=== PATIENT | male | born 1995 | race Caucasian/White ===

== ENCOUNTER 2019-05-09 21:41 | Inpatient (IN) | payer OTHER ==
[~2019-05-09] VITALS: Ht 188 cm; Wt 116.7 kg
[2019-05-09 23:00] VITALS: BP 115/72
[2019-05-09] MEDS ORDERED: LEVO200T5 PO (23:22)
[2019-05-10] MEDS ORDERED: CARI1.5C PO (00:22)
[2019-05-10] MEDS ORDERED: SERT100T PO (00:22)
[2019-05-10] MEDS: IV NORMAL SALINE 1000ML BAG 1,000 ML IV SCH ×3 (00:38→20:35)
[2019-05-10 03:00] VITALS: BP 115/70
[2019-05-10 07:00] VITALS: BP 113/74
--- NOTE | 2019-05-10 08:01 | PDOC2 ---
ALONZO WEBB RN MOBILE 05/10/19 0800: CONSULT Date of Consult Date of Consult DATE: 05/10/19 TIME: 07:56 Reason for Consult Reason for Consult: possible appendicitis Referring Physician Referring Physician: ER Identification/Chief Complaint Chief Complaint abdominal pain Source Source: Chart review, Patient History of Present Illness Reason for Visit: RLQ pain since monday, radiates to ruQ. Aggravated by movement. Associated nausea. Constipation, laxative taken--minimal stool, did not help pain. Pain remaining about the same Past Medical History Pulmonary: Bronchitis, Other (sleep apnea ) GI: GERD Psych: Bipolar, Other (ADHD) Endocrine: Hypothyroidism Past Surgical History Past Surgical History: No pertinent history Family History Family History: Other (noncontributory to current illness ) Social History Quit ALCOHOL: social Drugs: None (currently, previous hx) Current Medications Current Medications Current Medications Sodium Chloride 1,000 ml @ 100 mls/hr Q10H IV Last administered on 05/10/19at 00:38; Start 05/09/19 at 23:30 Influenza Virus Vaccine Quadrival (Afluria Quad 2019-20 (3yr Up) Syringe) 0.5 ml ONCE ONCE VAX IM ; Start 05/10/19 at 09:00; Stop 05/10/19 at 09:01 Active Scripts Active Reported Vraylar (Cariprazine Hydrochloride) 1.5 Mg Capsule 1 Cap PO DAILY 30 Days Zoloft (Sertraline Hcl) 100 Mg Tablet 100 Mg PO DAILY Levothyroxine Sodium 200 Mcg Tablet 200 Mcg PO DAILY06 Allergies Allergies: Coded Allergies: No Known Drug Allergies (Unverified , 05/10/19) ROS General: No: Chills, Other (fevers ) PSYCHOLOGICAL ROS: No: Anxiety, Depression Eyes: No Blurry vision, No Double vision HEENT: No: Heacaches, Sore Throat Hematological and Lymphatic: No: Bleeding Problems, Blood Clots Respiratory: No: Cough, SOB with excertion Cardiovascular: No Chest Pain, No Palpitations Gastrointestinal: Yes Other (see hpi) Genitourinary: No Dysuria, No Hematuria Musculoskeletal: No Joint Pain, No Muscle Pain Neurological: No Impaired Coord/balance, No Numbness/Tingling Skin: No Pruritus, No Rash Physical Exam General: Alert, Oriented X3, Cooperative, No acute distress HEENT: PERRLA, Mucous membr. moist/pink Lungs: Clear to auscultation, Normal air movement Heart: Regular rate, Normal S1, Normal S2 Abdomen: Soft, Other (ND, RLQ, pelvic area pain) Extremities: No clubbing, No cyanosis Skin: No rashes, No breakdown Neuro: Normal gait, Normal speech Psych/Mental Status: Mental status NL, Mood NL MUSCULOSKELETAL: No deformity, No swelling Vitals VITALS Vital Signs Date Time Temp Pulse Resp B/P (MAP) Pulse Ox O2 Delivery O2 Flow Rate FiO2 05/10/19 03:00 98.0 89 20 115/70 (85) 93 Room Air 98.0 Assessment/Plan Assessment/Plan RLQ pain since Monday, CT possible appendicitis WBC normal will review with JESSICA Barnhart MD 05/10/19 1036: CONSULT Assessment/Plan Assessment/Plan Patient seen and examined by me continues to complain of right lower quadrant abdominal pain radiating to his umbilicus. Reviewed CT scan showing signs consistent with early appendicitis. Plan for laparoscopic appendectomy today. Agree with Aide assessment and plan ALONZO WEBB APRN May 10, 2019 08:00 JESSICA MAZA MD May 10, 2019 10:36
[2019-05-10] MEDS ORDERED: FLU VAX QS 2019-20 (36MOS+)/PF 0.5 ML SYRINGE. VAX IM ONE (09:00)
[2019-05-10] MEDS ORDERED: IV RINGERS,LACTATED 1000ML 1,000 ML IV SCH (09:13)
[2019-05-10] MEDS ORDERED: MORPHINE SULFATE 2 MG/ML VIAL. IV PRN (09:15)
[2019-05-10] MEDS ORDERED: PROCHLORPERAZINE 10 MG/2 ML VIAL. IV PRN (09:15)
[2019-05-10] MEDS ORDERED: fentaNYL PF VIAL 100 MCG/2 ML VIAL IV PRN (09:15)
[2019-05-10] MEDS ORDERED: ONDANSETRON PF 4 MG/2 ML VIAL. IV PRN (09:15)
[2019-05-10] MEDS ORDERED: HYDROmorphone 2 MG/ML VIAL IV PRN (09:15)
[2019-05-10 11:00] VITALS: BP 118/73
[2019-05-10] MEDS ORDERED: ROCURONIUM 50 MG/5 ML VIAL. ONE (12:25)
[2019-05-10] MEDS ORDERED: PROPOFOL 20 ML IV ONE (12:25)
[2019-05-10] MEDS ORDERED: LIDOCAINE 2% PF 5 ML VIAL. ONE (12:25)
[2019-05-10] MEDS ORDERED: fentaNYL PF VIAL 100 MCG/2 ML VIAL ONE ×2 (12:26→13:34)
[2019-05-10] MEDS ORDERED: ceFAZolin 2GM PREMIX 2 GM/50 ML BAG IV ONE (13:00)
[2019-05-10] MEDS ORDERED: BUPIVACAINE-EPI 0.25%-1:200000 MPF 30 ML VIAL. INJ ONE (13:00)
--- NOTE | 2019-05-10 13:27 | HP ---
ADMIT DATE: 05/10/2019 HISTORY OF PRESENT ILLNESS: The patient is a 24-year-old male patient who was apparently seen at the Emergency Room of [facility] with a complaint of right lower quadrant pain that started since Monday. It apparently started around the umbilical area and the patient told that he has constipation and he took laxatives. Minimal stool did not help the pain and the pain continued, aggravated by movement and he was seen at the Emergency Room of [facility] where his CT scan of the abdomen showed that appendix is mildly dilated with minimal adjacent fat stranding. Findings relate to an early appendicitis. There is no obstruction. Nonobstructing right renal calculi with no evidence of obstructive uropathy and he has also hepatic steatosis. The patient therefore was transferred to [facility] to consult the surgical team. PAST MEDICAL HISTORY: Significant for bipolar disorder and hypothyroidism. PAST SURGICAL HISTORY: Significant for tonsillectomy and nasal polypectomy. FAMILY HISTORY: Noncontributory. 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 He does not smoke, but drinks alcohol and used to drink heavily. He also uses some amphetamine. ALLERGIES: He has no known drug allergies. MEDICATIONS: He is currently on following medications: He is on a medication for hypothyroidism as well as medication for his bipolar disorder. PHYSICAL EXAMINATION: GENERAL: On arrival to the Emergency Room, he looked well and was clearly in no apparent respiratory distress. No pallor, jaundice, cyanosis. No thyromegaly. No jugular venous distension. No lower limb edema. VITAL SIGNS: His heart rate was 81, blood pressure was 126/74, temperature was 98.6, respiratory rate was 20, and oxygen saturation was 96%. HEAD, EYES, EARS, NOSE AND THROAT: Showed normocephalic, atraumatic. NECK: Supple. HEART: Showed normal first and second heart sounds. No gallop or murmur. CHEST: Clear to auscultation. No crepitation or rhonchi. ABDOMEN: Distended, soft with tenderness mostly in the right lower quadrant. No guarding or rigidity. No organomegaly. All hernial orifice intact. Bowel sounds normal. NEUROLOGIC: He was awake, alert, responding appropriately. All cranial nerves intact. EXTREMITIES: He moves extremities without difficulty. LABORATORY DATA: His white cell count was 9100, hemoglobin 15, hematocrit 45, MCV 86 and platelet count of 96,000. His prothrombin time, INR and aPTT were normal. His chemistry showed a serum sodium 138, potassium 4, chloride 100, bicarbonate 28, anion gap of 10, BUN 11, creatinine 1.1. Estimated GFR was 81 mL per minute. His glucose was 99. Calcium was 9.1. Total bilirubin, AST, ALT, alkaline phosphatase were normal. Total protein was 7.8, albumin 4. Lipase was 111. His toxic screen was negative. Urinalysis was essentially unremarkable. CT scan of the abdomen showed that his appendix is mildly dilated with minimal adjacent fat stranding. Findings could relate to an early appendicitis. There is no evidence of bowel obstruction. He has nonobstructing right renal calculi. No evidence of obstructive uropathy. He has also mild hepatic steatosis. Plan is to keep him n.p.o., IV fluids, pain medication as well as antiemetic and to consult the surgical team for laparoscopic appendectomy. DANIELA MORALES MD DR: JONA/kayli JOB#: [id number] / [id number]
--- NOTE | 2019-05-10 13:32 | NUR ---
SW following pt for dc planning. Chart reviewed. Pt lives at home. Sx following. No SW needs identified. Will be available as needed.
[2019-05-10] MEDS ORDERED: KETOROLAC 30 MG/ML VIAL. ONE (13:35)
[2019-05-10] MEDS ORDERED: ONDANSETRON PF 4 MG/2 ML VIAL. ONE (13:35)
[2019-05-10] MEDS ORDERED: MIDAZOLAM HCL/PF 2 MG/2 ML VIAL. ONE (13:35)
[2019-05-10] MEDS ORDERED: GLYCOPYRROLATE 1 MG/5 ML VIAL. ONE (13:35)
[2019-05-10] MEDS ORDERED: DEXAMETHASONE SOD PHOS 4 MG/ML VIAL ONE (13:35)
[2019-05-10] MEDS ORDERED: NEOSTIGMINE METHYLSULFATE 5 MG/5 ML SYRINGE. ONE (13:35)
--- NOTE | 2019-05-10 15:08 | PDOC4 ---
Operative Note Operative Note Date: 05/10/2019 Preoperative diagnosis: Acute appendicitis Postoperative diagnosis: Same Procedure: Laparoscopic appendectomy Specimen: Appendix Surgeon: Khoa Dictation: Patient is 24-year-old male is better to the hospital with right lower quadrant abdominal pain and CT scan showing signs consistent with acute appendicitis. Procedure lap scopic appendectomy was explained to the patient in detail risk benefits were also discussed including bleeding infection injury to intra-abdominal contents possibly necessitating further open operations alternatives to this procedure also discussed with the patient who seemed to understand and gave both verbal and written consent had the procedure performed. Patient was taken to the operative Raposa supine position general anesthesia was initiated once patient was sleep and intubated his abdomen was prepped and draped usual sterile fashion using ChloraPrep and area just below the umbilicus was injected with quarter percent Marcaine with epinephrine incision was adal blade scalpel varies needle was placed within the abdomen creating pneu moperitoneum once this complete 12 mm port was placed and a 5 mill meter camera was placed within the abdomen and inspected no other abdomen maladies were noted. A 5 mm port was placed low in the midline under direct visualization and a second 5 mm port was placed in the right mid abdomen. The appendix was grasped retracted towards the anterior abdominal wall window was propagated the base the appendix to the meso appendix and an Endo RASHAD stapler was used to staple and transect the base the appendix rest the appendix was freed up from its attachments and a Endo RASHAD stapler was used to staple and transect the mesoappendix. The appendix was then placed in Endo Catch bag and removed from the umbilicus right lower quadrant pelvis were irrigated and suctioned dry hemostasis was deemed to be appropriate and the pneumoperitoneum was reduced all ports removed the fascial defect at the umbilicus closed with [id number] 0 Vicryl suture and the skin was approximated all port sites for subarticular Monocryl. Mastisol Steri-Strips and island dressings were applied. Patient was awakened and excavated in the operating room taken to recovery in stable condition all sponge instrument needle counts listed as correct estimate blood loss 10 mL. JESSICA MAZA MD May 10, 2019 15:08
[2019-05-10] MEDS: fentaNYL PF VIAL 100 MCG/2 ML VIAL IV PRN ×2 (15:37→15:57)
[2019-05-10] MEDS: KETOROLAC 15 MG/ML VIAL. IVP SCH (18:10)
[2019-05-10 19:00] VITALS: BP 116/68
[2019-05-10] MEDS ORDERED: ONDANSETRON PF 4 MG/2 ML VIAL. IVP PRN (20:15)
[2019-05-10] MEDS ORDERED: ACETAMINOPHEN 325 MG TABLET. PO PRN (20:15)
[2019-05-10] MEDS: fentaNYL PF VIAL 100 MCG/2 ML VIAL IVP PRN ×2 (20:34→23:05)
[2019-05-10 23:02] VITALS: BP 106/71
[2019-05-11] MEDS: KETOROLAC 15 MG/ML VIAL. IVP SCH ×3 (00:19→12:00)
[2019-05-11 03:24] VITALS: BP 118/71
[2019-05-11] MEDS: fentaNYL PF VIAL 100 MCG/2 ML VIAL IVP PRN (05:06)
[2019-05-11] MEDS ORDERED: LEVOTHYROXINE 100 MCG TABLET PO SCH (06:00)
[2019-05-11 06:01] LABS: HEMATOCRIT 42.5 % (39.0-53.0); HEMOGLOBIN 14.4 g/dL (13.0-17.5); RED BLOOD COUNT 4.99 x10^6/uL (4.30-5.70); RED CELL DISTRIBUTION WIDTH 13.1 % (11.5-14.5); WHITE BLOOD COUNT 10.1 x10^3/uL (4.0-11.0)
[2019-05-11] MEDS: IV NORMAL SALINE 1000ML BAG 1,000 ML IV SCH (06:12)
[2019-05-11 06:25] LABS: ALBUMIN 3.7 g/dL (3.4-5.0); ALBUMIN/GLOBULIN RATIO 1.1 (1.0-1.7); CREATININE 1.1 mg/dL (0.7-1.3); GFR 80.9; POTASSIUM 4.3 mmol/L (3.5-5.1); TOTAL BILIRUBIN 0.4 mg/dL (0.2-1.0); TOTAL PROTEIN 7.2 g/dL (6.4-8.2)
[2019-05-11 07:00] VITALS: BP 121/73
[2019-05-11] MEDS ORDERED: POLYETHYLENE GLYCOL 3350 17 GM PACKET. PO PRN (09:30)
[2019-05-11] MEDS ORDERED: HYDROcodone/APAP 5/325MG 1 TAB TABLET PO PRN (09:30)
[2019-05-11] MEDS ORDERED: DOCUSATE SODIUM 100 MG CAPSULE. PO SCH (10:00)
[2019-05-11 11:00] VITALS: BP 105/62
--- NOTE | 2019-05-11 11:44 | PDOC ---
SURGICAL PROGRESS NOTE Subjective Sergey for Dr Couch pt "doesn't feel good". belly button draining Vital Signs Vital Signs Date Time Temp Pulse Resp B/P (MAP) Pulse Ox O2 Delivery O2 Flow Rate FiO2 05/11/19 11:00 97.5 76 20 105/62 (76) 93 Room Air 97.5 05/10/19 17:20 2.0 I&O Intake and Output 05/11/19 07:00 Intake Total 1590 ml Output Total 1010 ml Balance 580 ml Intake Oral 240 ml IV Total 1350 ml Output Urine Total 1000 ml Estimated Blood Loss 10 ml PATIENT HAS A BANKS: No Abdomen: Soft, Other (incisions c/d after some minimal oozing from umbilical port site) Labs Laboratory Tests Test 05/11/19 05:05 White Blood Count 10.1 x10^3/uL (4.0-11.0) Red Blood Count 4.99 x10^6/uL (4.30-5.70) Hemoglobin 14.4 g/dL (13.0-17.5) Hematocrit 42.5 % (39.0-53.0) Mean Corpuscular Volume 85 fL (79-100) Mean Corpuscular Hemoglobin 29 pg (25-35) Mean Corpuscular Hemoglobin Concent 34 g/dL (31-37) Red Cell Distribution Width 13.1 % (11.5-14.5) Platelet Count 299 x10^3/uL (140-400) Sodium Level 140 mmol/L (136-145) Potassium Level 4.3 mmol/L (3.5-5.1) Chloride Level 106 mmol/L (98-107) Carbon Dioxide Level 28 mmol/L (21-32) Anion Gap 6 (6-14) Blood Urea Nitrogen 9 mg/dL (8-26) Creatinine 1.1 mg/dL (0.7-1.3) Estimated GFR (Cockcroft-Gault) 80.9 BUN/Creatinine Ratio 8 (6-20) Glucose Level 111 mg/dL (70-99) Calcium Level 9.0 mg/dL (8.5-10.1) Total Bilirubin 0.4 mg/dL (0.2-1.0) Aspartate Amino Transf (AST/SGOT) 21 U/L (15-37) Alanine Aminotransferase (ALT/SGPT) 54 U/L (16-63) Alkaline Phosphatase 65 U/L (46-116) Total Protein 7.2 g/dL (6.4-8.2) Albumin 3.7 g/dL (3.4-5.0) Albumin/Globulin Ratio 1.1 (1.0-1.7) Laboratory Tests Test 05/11/19 05:05 White Blood Count 10.1 x10^3/uL (4.0-11.0) Red Blood Count 4.99 x10^6/uL (4.30-5.70) Hemoglobin 14.4 g/dL (13.0-17.5) Hematocrit 42.5 % (39.0-53.0) Mean Corpuscular Volume 85 fL (79-100) Mean Corpuscular Hemoglobin 29 pg (25-35) Mean Corpuscular Hemoglobin Concent 34 g/dL (31-37) Red Cell Distribution Width 13.1 % (11.5-14.5) Platelet Count 299 x10^3/uL (140-400) Sodium Level 140 mmol/L (136-145) Potassium Level 4.3 mmol/L (3.5-5.1) Chloride Level 106 mmol/L (98-107) Carbon Dioxide Level 28 mmol/L (21-32) Anion Gap 6 (6-14) Blood Urea Nitrogen 9 mg/dL (8-26) Creatinine 1.1 mg/dL (0.7-1.3) Estimated GFR (Cockcroft-Gault) 80.9 BUN/Creatinine Ratio 8 (6-20) Glucose Level 111 mg/dL (70-99) Calcium Level 9.0 mg/dL (8.5-10.1) Total Bilirubin 0.4 mg/dL (0.2-1.0) Aspartate Amino Transf (AST/SGOT) 21 U/L (15-37) Alanine Aminotransferase (ALT/SGPT) 54 U/L (16-63) Alkaline Phosphatase 65 U/L (46-116) Total Protein 7.2 g/dL (6.4-8.2) Albumin 3.7 g/dL (3.4-5.0) Albumin/Globulin Ratio 1.1 (1.0-1.7) Assessment/Plan POD 1 l/s appendectomy dressing changed, no evidence of active bleeding OK to dismiss from our standpoint f/u with Dr Couch in the [facility] office FRANCO SOSA MD May 11, 2019 11:44
[2019-05-11] MEDS ORDERED: DOCU-109 PO (12:04)
[2019-05-11] MEDS ORDERED: POLY17PO29 PO (12:04)
[2019-05-11] MEDS ORDERED: HYDR-3164 PO (12:04)
--- NOTE | 2019-05-11 14:35 | NUR ---
pt discharged home with friend. given script for [place] and additional supplies for dressing changes. pt instructed on incision care and to follow up with Dr. Couch on 05/21. pt v\u. IV removed cath intact. pt stable upon dc. refused w/c. ambulated off unit accompanied by LISS Castelan
--- NOTE | 2019-05-11 15:41 | DS ---
DATE OF DISCHARGE: 05/11/2019 HOSPITAL COURSE: The patient was admitted yesterday with right lower quadrant pain, has had a CT scan done at [facility]. It showed that he had inflamed appendix. He was transferred to [facility] with acute appendicitis, underwent laparoscopic appendectomy yesterday successfully, and did very well postoperatively. He denied any nausea or vomiting, has tolerated his breakfast. He was seen by the surgical team, who okayed discharge. When I saw him this afternoon, he looked well and was clearly in no apparent respiratory distress. His vital signs were stable. His lab works were within normal range. DISCHARGE MEDICATIONS: The patient was discharged home to continue on Colace 100 mg twice a day, hydrocodone/APAP 5/325 one tablet every 6 hours as needed, and polyethylene glycol 17 grams daily. He should also continue on his Vraylar 1.5 mg daily, levothyroxine sodium 200 mcg once a day, and sertraline 100 mg once a day. FINAL DISCHARGE DIAGNOSES: Acute appendicitis, status post laparoscopic appendectomy. Other medical problems include hypothyroidism and bipolar disorder. DANIELA MORLAES MD DR: JONA/kayli JOB#: [id number] / [id number]
--- NOTE | 2019-05-14 16:06 | PATHOLOGY ---
[facility] Accession Number: [id number] . 01 Material submitted: . appendix - APPENDIX . 01 Clinical history: . Acute appendicitis . 02 Diagnosis: Appendix, appendectomy: - Acute appendicitis. . (MAP:[facility]; 05/14/2019) [facility] 05/14/2019 1312 Local . 02 Electronically signed: . Chema Beauchamp MD, Pathologist NPI- [id number] . 01 Gross description: . Received in formalin, labeled "Schoenhals, Marcelo, appendix", is an vermiform appendix (9.5 cm length x 0.8 cm diameter) and attached mesoappendix (5.7 x 1.5 x 1.0 cm). The proximal resection margin is closed by a linear staple line 1.5 cm with an average 0.1 cm width. The staple line and the adjacent serosa is inked black. The serosa is diffusely hemorrhagic and with no recognizable perforation. The lumen proximal to mid dilated and filled with soft hemorrhagic material and in no discrete fecalith. The wall has an average thickness of 0.1 cm. The anat-appendiceal soft tissue has a yellow cut surface. Representatively submitted in A1. ([facility]; 05/13/2019) [facility] 05/13/2019 1944 Local . 02 Pathologist provided ICD-10: K35.80 . 02 CPT . [id number] Specimen Comment: A courtesy copy of this report has been sent to [phone] Specimen Comment: [id number], Specimen Comment: Report sent to ,DR MORALES / DR HENRIQUEZ Performed at: [address], [place], [place] [id number] MD Kaleb Beatty MD Phone: [phone] Performed at: [address] [id number] MD Cleve Galeana MD Phone: [phone]
== END 2019-05-11 14:00 | disposition home or self-care (01) | DRG 343 ==
LOC: 5 SOUTH 23:10
PROVIDERS: ADMIT Internal Medicine; ATTEND Internal Medicine
PROC: 0DTJ4ZZ Resection of Appendix, Percutaneous Endoscopic Approach (ICD-10-PCS; principal; 2019-05-10 14:45)
DX: K35.80 Unspecified acute appendicitis (principal); F31.9 Bipolar disorder, unspecified; E03.9 Hypothyroidism, unspecified; K76.0 Fatty (change of) liver, not elsewhere classified; K59.00 Constipation, unspecified; K21.9 Gastro-esophageal reflux disease without esophagitis; F90.9 Attention-deficit hyperactivity disorder, unspecified type; N20.0 Calculus of kidney; G47.30 Sleep apnea, unspecified
CPT/HCPCS: 36415; 80053; 85027; 88304; A7015; J0696; J1100; J1170; J1885; J2001; J2250; J2405; J2704; J2710; J3010; J3490; J7030; J7120; G0378